=== PATIENT | female | born 1980 | race Caucasian/White ===

== ENCOUNTER 2017-11-05 20:26 | Emergency (ER) | payer OTHER ==
[2017-11-05 21:18] LABS: #Basophils 0.1 thou/uL (0.0-0.2); #Eosinphils 0.2 thou/uL (0.0-0.7); #Lymphocytes 1.9 thou/uL (1.20-3.40); #Monocytes 0.8 thou/uL (0.11-0.59); %Eosinophils 1.4 % (0.0-10.0); %Lymphocytes 17.6 % (21.0-51.0); %Monocytes 7.3 % (0.0-10.0); %Neutrophils 72.6 % (42.0-75.0); Hemoglobin 11.4 g/dL (12.0-16.0); Mean Corpuscular HGB CONC 33.7 g/dL (32.0-36.0); Mean Corpuscular Volume 85.8 fl (81.0-99.0); Mean Platelet Volume 10.7 fL (7.4-10.4); Platelet Count 222 thou/uL (130-400); RBC Distribution Width 12.2 % (11.5-14.5); Red Blood Cell (RBC) Count 3.94 mill/uL (4.20-5.40)
[2017-11-05 21:30] LABS: Anion Gap 12 mmol/L (10-20); BUN (Urea Nitrogen) 11 mg/dL (7.0-18.7); Calc. Creatinine Clearance 0 mL/min (70-130); Calcium 9.1 mg/dL (7.8-10.44); Carbon Dioxide 24 mmol/L (22-29); Chloride 105 mmol/L (98-107); Estimated GFR-MDRD Greater than 90; Glucose 99 mg/dL (70-105); Potassium 3.6 mmol/L (3.5-5.1); Sodium 137 mmol/L (136-145)
--- NOTE | 2017-11-05 22:23 | ULT ---
ULTRASOUND WITH DOPPLER DUPLEX VENOUS LOWER EXTREMITY LEFT 11/05/17 CPT: 96658 ICD-10-PCS: B54D HISTORY: Pain. TECHNIQUE: Color flow Doppler, spectral waveform analysis of pulsed Doppler, and llamas-scale imaging with brianda servando and augmentation, were used to evaluate the left common femoral, femoral, popliteal, posterior t ibial, and superficial femoral, veins; and the proximal portions of the profunda femoral and greater saphenous, veins. FINDINGS: There is evidence of decreased compressibility and reduced flow within the greater saphenous vein. Ot herwise, there is no deep vein thrombosis evident within the left lower extremity. IMPRESSION: Superficial vein thrombus evident within the left lower extremity involving greater saphenous veins. No DVT otherwise identified. POS: [facility]
== END 2017-11-05 22:27 | disposition home or self-care (01) ==
LOC: SCSER 20:26
DX: I80.9 Phlebitis and thrombophlebitis of unspecified site (principal); Z79.82 Long term (current) use of aspirin
CPT/HCPCS: 36415; 80048; 85025; 86140